=== PATIENT | male | born 1995 | race Hispanic/Latino ===

== ENCOUNTER 2021-05-20 13:28 | Emergency (ER) | payer MEDICAID, SELFPAY | END 2021-05-20 14:38 | disposition home or self-care (01) | LOC: BURERS 13:28 | DX: J20.9 Acute bronchitis, unspecified (principal); F17.210 Nicotine dependence, cigarettes, uncomplicated; Z20.822 Contact with and (suspected) exposure to COVID-19 | CPT/HCPCS: 99284 ==